=== PATIENT | male | born 1975 | race African-American/Black ===

== ENCOUNTER → 2018-05-22 | Outpatient (CLI) | payer BC ==
[2018-05-22 09:20] LABS: Basophils # (auto) 0 uL; Basophils % (auto) 0.7 % (0.0-2.0); Eosinophils # (auto) 0.1 uL; Eosinophils % (auto) 1.8 % (0.0-7.0); Hematocrit 46.8 % (41.0-53.0); Hemoglobin 15.6 g/dL (13.5-17.5); Lymphocytes # (auto) 1.9 uL; Lymphocytes % (auto) 32.4 % (10.0-50.0); Mean Corpuscular Hemoglobin 29.1 pg (28.0-32.0); Mean Corpuscular Hgb Conc. 33.4 g/dL (32.0-36.0); Mean Corpuscular Volume 87.1 fL (80.0-100.0); Monocytes # (auto) 0.4 uL; Neutrophils # (auto) 3.6 uL; Neutrophils % (auto) 59.1 % (37.0-80.0); Platelet Count (auto) 266 10^3/uL (140-450); Red Blood Cells 5.37 10^6/uL (4.5-5.90); Red Cell Distribution Width 13.4 % (11.8-14.3)
[2018-05-22 09:22] LABS: Urine Bacteria NONE SEEN /hpf (None Seen); Urine Blood Negative /uL (Negative); Urine Specific Gravity 1.021 (1.001-1.035); Urine WBC 3 /hpf (0 - 3)
[2018-05-22 09:55] LABS: Albumin 3.7 g/dL (3.4-5.0); BUN/Creatinine Ratio 13.8; Bilirubin, Total 0.6 mg/dL (0.2-1.0); Calcium 8.8 mg/dL (8.5-10.1); Potassium 4.2 mmol/L (3.5-5.1); Total Protein 7.4 g/dL (6.4-8.2)
[2018-05-22 09:57] LABS: Free T4 (Free Thyroxine) 0.84 ng/dL (0.89-1.76); Prostate Specific Antigen 0.33 ng/mL (0.0-4.0)
== END | disposition home or self-care (01) ==
LOC: LAB 08:44
PROVIDERS: ATTEND Internal Medicine
DX: E55.9 Vitamin D deficiency, unspecified (principal); R39.15 Urgency of urination; M54.9 Dorsalgia, unspecified
CPT/HCPCS: 36415; 80053; 80061; 81001; 82306; 83036; 84153; 84439; 84443; 85025; 85652; 86812

== ENCOUNTER → 2019-06-11 | Outpatient (CLI) | payer BC ==
[2019-06-11 09:42] LABS: Basophils # (auto) 0.1 uL; Basophils % (auto) 0.8 % (0.0-2.0); Eosinophils # (auto) 0.2 uL; Eosinophils % (auto) 2.7 % (0.0-7.0); Hematocrit 49.6 % (41.0-53.0); Hemoglobin 16.4 g/dL (13.5-17.5); Lymphocytes # (auto) 2.2 uL; Lymphocytes % (auto) 30.8 % (10.0-50.0); Mean Corpuscular Hemoglobin 28.9 pg (28.0-32.0); Mean Corpuscular Volume 87.6 fL (80.0-100.0); Monocytes # (auto) 0.5 uL; Monocytes % (auto) 6.7 % (0.0-12.0); Neutrophils # (auto) 4.2 uL; Nucleated Red Blood Cells % 0.1 %; Platelet Count (auto) 258 10^3/uL (140-450); Red Blood Cells 5.67 10^6/uL (4.5-5.90); Red Cell Distribution Width 13.8 % (11.8-14.3); White Blood Cell 7.2 10^3/uL (4.4-10.8)
[2019-06-11 10:24] LABS: Urine Bacteria NONE SEEN /hpf (None Seen); Urine Blood Negative /uL (Negative); Urine Mucus FEW (None Seen); Urine Specific Gravity 1.024 (1.001-1.035); Urine WBC 7 /hpf (0 - 3)
[2019-06-11 10:49] LABS: Potassium 3.9 mmol/L (3.5-5.1)
[2019-06-11 11:02] LABS: Albumin 3.9 g/dL (3.4-5.0); BUN/Creatinine Ratio 13.3; Calcium 9.2 mg/dL (8.5-10.1)
[2019-06-11 11:07] LABS: Bilirubin, Total 0.7 mg/dL (0.2-1.0); Total Protein 7.7 g/dL (6.4-8.2)
== END | disposition home or self-care (01) ==
LOC: LAB 08:30
PROVIDERS: ATTEND Internal Medicine
DX: Z00.00 Encounter for general adult medical examination without abnormal findings (principal); R21 Rash and other nonspecific skin eruption; E55.9 Vitamin D deficiency, unspecified; M25.50 Pain in unspecified joint
CPT/HCPCS: 36415; 80053; 80061; 81001; 82306; 84439; 84443; 85025; 85652; 86038; 86200; 86431

== ENCOUNTER → 2020-09-23 | Outpatient (CLI) | payer BC | END | disposition home or self-care (01) | LOC: LAB 13:50 | PROVIDERS: ATTEND Nurse Practitioner Family | DX: U07.1 COVID-19 (principal) ==

== ENCOUNTER → 2020-10-12 | Outpatient (CLI) | payer BC ==
[2020-10-12 12:48] LABS: Basophils # (auto) 0.1 10 ^3/uL (0-0.2); Basophils % (auto) 0.7 % (0.0-2.0); Eosinophils # (auto) 0.1 10 ^3/uL (0-0.8); Eosinophils % (auto) 1.1 % (0.0-7.0); Hematocrit 47.5 % (41.0-53.0); Hemoglobin 15.9 g/dL (13.5-17.5); Lymphocytes # (auto) 2.5 10 ^3/uL (0.4-5.4); Lymphocytes % (auto) 33.2 % (10.0-50.0); Mean Corpuscular Hemoglobin 29.1 pg (28.0-32.0); Mean Corpuscular Hgb Conc. 33.5 g/dL (32.0-36.0); Mean Corpuscular Volume 86.9 fL (80.0-100.0); Monocytes # (auto) 0.6 10 ^3/uL (0-1.3); Monocytes % (auto) 7.7 % (0.0-12.0); Neutrophils # (auto) 4.2 10 ^3/uL (1.6-8.6); Neutrophils % (auto) 57.3 % (37.0-80.0); Nucleated Red Blood Cells % 0.1 %; Platelet Count (auto) 451 10^3/uL (140-450); Red Blood Cells 5.46 10^6/uL (4.5-5.90); White Blood Cell 7.4 10^3/uL (4.4-10.8)
[2020-10-12 12:56] LABS: Albumin 3.3 g/dL (3.4-5.0); Anion Gap 4 (5-15); Blood Urea Nitrogen 16 mg/dL (7-18); Calcium 9.2 mg/dL (8.5-10.1); Carbon Dioxide 27 mmol/L (21-32); Chloride 109 mmol/L (98-107); Glucose 111 mg/dL (74-106); Potassium 4.2 mmol/L (3.5-5.1); Sodium 140 mmol/L (136-145)
[2020-10-12 13:02] LABS: Alanine Aminotransferase 45 U/L (16-61); Alkaline Phosphatase 64 U/L (45-117); Aspartate Aminotransferase 11 U/L (15-37); BUN/Creatinine Ratio 17.2; Bilirubin, Total 0.8 mg/dL (0.2-1.0); CRP High Sensitivity 0.26 mg/dL (< 0.3); GFR African American 112 mL/min; GFR Non-African American 93 mL/min; Lactate Dehydrogenase 150 U/L (87-241); Total Protein 7.4 g/dL (6.4-8.2)
== END | disposition home or self-care (01) ==
LOC: LAB 12:23
PROVIDERS: ATTEND Internal Medicine
DX: U07.1 COVID-19 (principal); J18.9 Pneumonia, unspecified organism
CPT/HCPCS: 36415; 80053; 82728; 83615; 84484; 85025; 85379; 86141

== ENCOUNTER 2021-08-01 18:28 | Emergency (ER) | payer BC ==
[~2021-08-01] VITALS: Ht 182.9 cm; Wt 102.1 kg
[2021-08-01] MEDS ORDERED: HYDROcodone-ACET 5/325MG TAB PO ONE (19:00)
[2021-08-01] MEDS ORDERED: KETOROLAC TROMETH 30 MG/ML 1ML VIAL IV ONE (21:15)
[2021-08-01 21:40] VITALS: BP 107/71
== END 2021-08-01 22:01 | disposition short-term general hospital (02) ==
LOC: EDBD 18:28 → ER 18:30
DX: S22.41XA Multiple fractures of ribs, right side, initial encounter for closed fracture (principal); W18.39XA Other fall on same level, initial encounter; Y93.89 Activity, other specified; Y92.89 Other specified places as the place of occurrence of the external cause; Y99.8 Other external cause status
CPT/HCPCS: 71045; 72131; 73130; 96374; 99285; J1885

== ENCOUNTER → 2021-11-05 | Outpatient (CLI) | payer BC ==
[2021-11-05 07:38] LABS: Basophils # (auto) 0.1 10 ^3/uL (0-0.2); Basophils % (auto) 0.9 % (0.0-2.0); Eosinophils # (auto) 0.2 10 ^3/uL (0-0.8); Eosinophils % (auto) 2.5 % (0.0-7.0); Hemoglobin 15.4 g/dL (13.5-17.5); Lymphocytes # (auto) 2.3 10 ^3/uL (0.4-5.4); Lymphocytes % (auto) 32.4 % (10.0-50.0); Mean Corpuscular Hemoglobin 28.5 pg (28.0-32.0); Mean Corpuscular Hgb Conc. 33.5 g/dL (32.0-36.0); Mean Corpuscular Volume 84.9 fL (80.0-100.0); Monocytes # (auto) 0.5 10 ^3/uL (0-1.3); Monocytes % (auto) 7.6 % (0.0-12.0); Neutrophils % (auto) 56.6 % (37.0-80.0); Nucleated Red Blood Cells % 0.3 %; Red Blood Cells 5.41 10^6/uL (4.5-5.90); Red Cell Distribution Width 13.6 % (11.8-14.3); White Blood Cell 7.1 10^3/uL (4.4-10.8)
[2021-11-05 08:27] LABS: Albumin 3.4 g/dL (3.4-5.0); Potassium 4.2 mmol/L (3.5-5.1)
[2021-11-05 08:32] LABS: BUN/Creatinine Ratio 17.8; Bilirubin, Total 0.4 mg/dL (0.2-1.0); Total Protein 6.8 g/dL (6.4-8.2)
== END | disposition home or self-care (01) ==
LOC: LAB 06:58
PROVIDERS: ATTEND Internal Medicine
DX: E78.1 Pure hyperglyceridemia (principal); E55.9 Vitamin D deficiency, unspecified; R73.01 Impaired fasting glucose
CPT/HCPCS: 36415; 80053; 80061; 82306; 83036; 84439; 84443; 85025; 85652

== ENCOUNTER → 2022-06-27 | Outpatient (CLI) | payer BC ==
[2022-06-27 08:08] LABS: Basophils # (auto) 0 10 ^3/uL (0-0.2); Basophils % (auto) 0.6 % (0.0-2.0); Eosinophils # (auto) 0.1 10 ^3/uL (0-0.8); Eosinophils % (auto) 1.8 % (0.0-7.0); Hematocrit 47.7 % (41.0-53.0); Hemoglobin 15.5 g/dL (13.5-17.5); Lymphocytes % (auto) 40.7 % (10.0-50.0); Mean Corpuscular Hemoglobin 28.3 pg (28.0-32.0); Mean Corpuscular Hgb Conc. 32.4 g/dL (32.0-36.0); Mean Corpuscular Volume 87.2 fL (80.0-100.0); Monocytes # (auto) 0.5 10 ^3/uL (0-1.3); Monocytes % (auto) 6.3 % (0.0-12.0); Neutrophils # (auto) 3.7 10 ^3/uL (1.6-8.6); Neutrophils % (auto) 50.6 % (37.0-80.0); Nucleated Red Blood Cells % 0.2 %; Red Blood Cells 5.47 10^6/uL (4.5-5.90); Red Cell Distribution Width 13.6 % (11.8-14.3); White Blood Cell 7.3 10^3/uL (4.4-10.8)
[2022-06-27 08:17] LABS: Albumin 3.7 g/dL (3.4-5.0); Calcium 8.8 mg/dL (8.5-10.1); Potassium 3.8 mmol/L (3.5-5.1)
[2022-06-27 08:20] LABS: BUN/Creatinine Ratio 13.9; Bilirubin, Total 0.6 mg/dL (0.2-1.0); Total Protein 7.2 g/dL (6.4-8.2)
== END | disposition home or self-care (01) ==
LOC: LAB 07:53
PROVIDERS: ATTEND Internal Medicine
DX: R63.5 Abnormal weight gain (principal); R68.2 Dry mouth, unspecified
CPT/HCPCS: 36415; 80053; 84439; 84443; 85025; 85652; 86235

== ENCOUNTER → 2023-07-12 | Outpatient (CLI) | payer BC ==
[2023-07-12 10:33] LABS: Basophils # (auto) 0.1 10 ^3/uL (0-0.2); Basophils % (auto) 0.8 % (0.0-2.0); Eosinophils # (auto) 0.2 10 ^3/uL (0-0.8); Eosinophils % (auto) 2.2 % (0.0-7.0); Hematocrit 45.9 % (41.0-53.0); Hemoglobin 15.1 g/dL (13.5-17.5); Lymphocytes # (auto) 2.7 10 ^3/uL (0.4-5.4); Lymphocytes % (auto) 35.8 % (10.0-50.0); Mean Corpuscular Hemoglobin 28.5 pg (28.0-32.0); Mean Corpuscular Hgb Conc. 32.9 g/dL (32.0-36.0); Mean Corpuscular Volume 86.7 fL (80.0-100.0); Monocytes # (auto) 0.5 10 ^3/uL (0-1.3); Monocytes % (auto) 7.3 % (0.0-12.0); Neutrophils # (auto) 4.1 10 ^3/uL (1.6-8.6); Neutrophils % (auto) 53.9 % (37.0-80.0); Red Cell Distribution Width 13.8 % (11.8-14.3); White Blood Cell 7.5 10^3/uL (4.4-10.8)
[2023-07-12 11:18] LABS: Alanine Aminotransferase 26 U/L (7-40); Alkaline Phosphatase 64 U/L (46-116); Anion Gap 6 (5-15); Aspartate Aminotransferase 17 U/L (13-40); BUN/Creatinine Ratio 11.8 (10.0-20.0); Blood Urea Nitrogen 11 mg/dL (9-23); Calcium 9.4 mg/dL (8.5-10.1); Carbon Dioxide 26 mmol/L (20-30); Chloride 108 mmol/L (98-107); Glucose 110 mg/dL (74-106); Potassium 4.2 mmol/L (3.5-5.1); Sodium 140 mmol/L (136-145)
[2023-07-12 11:19] LABS: Albumin 4.2 g/dL (3.2-4.8); Bilirubin, Total 0.8 mg/dL (0.2-1.0); Total Protein 6.9 g/dL (5.7-8.2)
== END | disposition home or self-care (01) ==
LOC: LAB 10:24
PROVIDERS: ATTEND Internal Medicine
DX: R53.83 Other fatigue (principal); Z86.16 Personal history of COVID-19
CPT/HCPCS: 36415; 80053; 83036; 85025; 85379

== ENCOUNTER → 2024-10-10 | Outpatient (CLI) | payer BC ==
[2024-10-10 06:43] LABS: Urine Bacteria None Seen /hpf (None Seen)
[2024-10-10 07:12] LABS: Basophils # (auto) 0 10 ^3/uL (0-0.2); Basophils % (auto) 0.6 % (0.0-2.0); Eosinophils # (auto) 0.2 10 ^3/uL (0-0.8); Eosinophils % (auto) 2.4 % (0.0-7.0); Hematocrit 48.5 % (41.0-53.0); Hemoglobin 15.8 g/dL (13.5-17.5); Lymphocytes % (auto) 37.9 % (10.0-50.0); Mean Corpuscular Hemoglobin 28.8 pg (28.0-32.0); Mean Corpuscular Hgb Conc. 32.6 g/dL (32.0-36.0); Mean Corpuscular Volume 88.5 fL (80.0-100.0); Monocytes # (auto) 0.5 10 ^3/uL (0-1.3); Monocytes % (auto) 6.9 % (0.0-12.0); Neutrophils # (auto) 4.1 10 ^3/uL (1.6-8.6); Neutrophils % (auto) 52.2 % (37.0-80.0); Nucleated Red Blood Cells % 0.1 %; Platelet Count (auto) 268 10^3/uL (140-450); Red Blood Cells 5.48 10^6/uL (4.5-5.90); Red Cell Distribution Width 13.9 % (11.8-14.3); Urine Blood Negative /uL (Negative); Urine Clarity Clear (Clear); Urine Color Yellow (Yellow); Urine Mucus FEW (None Seen); Urine Protein, UAD Negative (Negative); Urine Specific Gravity 1.024 (1.001-1.035); Urine Squamous Epithelial Cell None Seen /hpf (<5); Urine Urobilinogen Normal (Negative); Urine WBC 2 /hpf (0 - 3); White Blood Cell 7.8 10^3/uL (4.4-10.8)
[2024-10-10 07:37] LABS: Prostate Specific Antigen 0.55 ng/mL (0.0-4.0)
[2024-10-10 07:40] LABS: Alanine Aminotransferase 28 U/L (7-40); Albumin 4.2 g/dL (3.2-4.8); Alkaline Phosphatase 72 U/L (46-116); Anion Gap 9 (5-15); Aspartate Aminotransferase 16 U/L (13-40); BUN/Creatinine Ratio 11.5 (10.0-20.0); Blood Urea Nitrogen 11 mg/dL (9-23); Carbon Dioxide 26 mmol/L (20-31); Free T4 (Free Thyroxine) 0.89 ng/dL (0.89-1.76); Sodium 142 mmol/L (136-145)
[2024-10-10 07:41] LABS: Bilirubin, Total 0.7 mg/dL (0.2-1.0)
[2024-10-10 07:50] LABS: Chloride 107 mmol/L (98-107); Glucose 118 mg/dL (74-106)
[2024-10-10 08:08] LABS: Triglycerides 129 mg/dL (< 150)
[2024-10-10 08:10] LABS: Cholesterol 182 mg/dL (< 200); HDL Cholesterol 53 mg/dL (40-59)
[2024-10-10 08:14] LABS: LDL Cholesterol 133 mg/dL (< 100)
[2024-10-10 09:00] LABS: Erythrocyte Sedimentation Rate 2 mm/hr (0-20)
== END | disposition home or self-care (01) ==
LOC: LAB 06:30
PROVIDERS: ATTEND Internal Medicine
DX: R63.1 Polydipsia (principal)
CPT/HCPCS: 36415; 80053; 80061; 81001; 83036; 84153; 84439; 84443; 85025; 85652

== ENCOUNTER → 2025-01-03 | Outpatient (CLI) | payer BC ==
[2025-01-03 11:44] LABS: Basophils # (auto) 0.1 10 ^3/uL (0-0.2); Basophils % (auto) 0.9 % (0.0-2.0); Eosinophils # (auto) 0.2 10 ^3/uL (0-0.8); Eosinophils % (auto) 2.1 % (0.0-7.0); Hematocrit 45.4 % (41.0-53.0); Hemoglobin 15.5 g/dL (13.5-17.5); Lymphocytes # (auto) 2.2 10 ^3/uL (0.4-5.4); Lymphocytes % (auto) 28.1 % (10.0-50.0); Mean Corpuscular Hemoglobin 29.9 pg (28.0-32.0); Mean Corpuscular Volume 87.8 fL (80.0-100.0); Monocytes # (auto) 0.4 10 ^3/uL (0-1.3); Monocytes % (auto) 5.6 % (0.0-12.0); Neutrophils # (auto) 4.8 10 ^3/uL (1.6-8.6); Neutrophils % (auto) 63.3 % (37.0-80.0); Nucleated Red Blood Cells % 0.1 %; Platelet Count (auto) 252 10^3/uL (140-450); Red Blood Cells 5.18 10^6/uL (4.5-5.90); Red Cell Distribution Width 14.3 % (11.8-14.3); White Blood Cell 7.6 10^3/uL (4.4-10.8)
[2025-01-03 12:18] LABS: Alanine Aminotransferase 27 U/L (7-40); Albumin 4.2 g/dL (3.2-4.8); Alkaline Phosphatase 65 U/L (46-116); Anion Gap 8 (5-15); Aspartate Aminotransferase 18 U/L (13-40); BUN/Creatinine Ratio 9.5 (10.0-20.0); Bilirubin, Total 1.1 mg/dL (0.2-1.0); Blood Urea Nitrogen 9 mg/dL (9-23); Calcium 9.7 mg/dL (8.7-10.4); Carbon Dioxide 26 mmol/L (20-31); Potassium 4.4 mmol/L (3.5-5.1); Sodium 142 mmol/L (136-145); Total Protein 6.9 g/dL (5.7-8.2)
[2025-01-03 12:22] LABS: Chloride 108 mmol/L (98-107); Glucose 106 mg/dL (74-106)
== END | disposition home or self-care (01) ==
LOC: LAB 10:55
PROVIDERS: ATTEND Internal Medicine
DX: Z12.11 Encounter for screening for malignant neoplasm of colon (principal); R10.9 Unspecified abdominal pain
CPT/HCPCS: 36415; 80053; 82270; 85025

== ENCOUNTER 2025-04-18 15:22 | Inpatient (IN) | payer BC ==
[~2025-04-18] VITALS: Ht 182.9 cm; Wt 99.5 kg
--- NOTE | 2025-04-18 15:45 | ED.PDOC ---
General HPI Comments A 49 YEAR OLD MALE PRESENTS TO THE ED WITH COMPLAINT OF LEFT FLANK PAIN. PATIENT STATES HE HAS A HISTORY OF KIDNEY STONES IN THE PAST AND HAS BEEN EXPERIENCING LEFT FLANK PAIN THAT RADIATES TO THE LEFT LOWER QUADRANT OF HIS ABDOMEN THAT STARTED TODAY. PATIENT REPORTS HE HAS ALSO BEEN EXPERIENCING URINARY URGENCY, BUT NOTES ONLY A SMALL AMOUNT OF URINE COMES OUT. PATIENT DENIES DYSURIA, HEMATURIA, FEVER, CHILLS, SHORTNESS OF BREATH, CHEST PAIN, NAUSEA, VOMITING, HEADACHE, OR OTHER COMPLAINTS. NO OTHER SYMPTOMS OR MODIFYING FACTORS AT THIS TIME. PATIENT IS ALERT, ORIENTED X 4, AND HAS STEADY GAIT. Time Seen by MD: 15:24 Primary Care Provider: GURJIT Reviewed notes: Nurses Notes, Medications, Allergies Allergies: Coded Allergies: NO KNOWN ALLERGIES (Unverified , 08/28/15) Home Meds No Active Prescriptions or Reported Meds Information Source: Patient Mode of Arrival: Ambulatory Severity: Moderate Inability to void: None Timing: Days Duration: Since onset, Days Prehospital treatment: None Onset: Spontaneous Symptoms: Frequency, Urgency, Other (LEFT FLANK PAIN) History of: Kidney stone Location: None Penile discharge: None Modifying factors: None associated signs and symptoms: Flank Pain, Urgency Past Medical History PAST MEDICAL HISTORY: Kidney Stones Surgical History: Denies all surgeries Family History Family History: Reviewed,noncontributory to illness Social History Smoker: Non-Smoker Alcohol: Denies ETOH Use Drugs: Denies Drug Use Lives In: Home Constitutional: denies: chills, diaphoresis, fatigue, fever, malaise, sweats, weakness, others EENTM: denies: blurred vision, double vision, ear bleeding, ear discharge, ear drainage, ear pain, ear ringing, eye pain, eye redness, hearing loss, mouth pain, mouth swelling, nasal discharge, nose bleeding, nose congestion, nose pain, photophobia, tearing, throat pain, throat swelling, voice changes, others Respiratory: denies: cough, hemoptysis, orthopnea, SOB at rest, shortness of breath, SOB with excertion, stridor, wheezing, others Cardiovascular: denies: chest pain, dizzy spells, diaphoresis, Dyspnea on exertion, edema, irregular heart beat, left arm pain, lightheadedness, palpitations, PND, syncope, others Gastrointestinal: reports: abdominal pain (LLQ ABDOMINAL PAIN); denies: abdomen distended, blood streaked bowels, constipated, diarrhea, dysphagia, difficulty swallowing, hematemesis, melena, nausea, poor appetite, poor fluid intake, rectal bleeding, rectal pain, vomiting, others Genitourinary: reports: flank pain (LEFT FLANK PAIN), frequency, urgency; denies: burning, dysuria, hematuria, incontinence, penile discharge, penile sore, pain, testicle pain, testicle swelling, others Neurological: denies: dizziness, fainting, headache, left sided numbness, left sided weakness, numbness, paresthesia, pre-existing deficit, right sided n umbness, right sided weakness, seizure, speech problems, tingling, tremors, weakness, others Musculoskeletal: denies: back pain, gout, joint pain, joint swelling, muscle pain, muscle stiffness, neck pain, others Integumetry: denies: bruises, change in color, change in hair/nails, dryness, laceration, lesions, lumps, rash, wounds, others Allergic/Immunocompromised: denies: Difficulty Healing, Frequent Infections, Hives, Itching, others Hematologic/Lymphatic: denies: anemia, blood clots, easy bleeding, easy bruising, swollen glands, others Endocrine: denies: excessive hunger, excessive sweating, excessive thirst, excessive urination, flushing, intolerance to cold, intolerance to heat, unexplained weight gain, unexplained weight loss, others Psychiatric: denies: anxiety, bipolar disorder, depression, hopeless, panic disorder, schizophrenia, sleepless, suicidal, others All Other Systems: Reviewed and Negative Physical Exam General Appearance: No Apparent Distress, Normal HEENT: Normal ENT Inspection, PERRL/EOMI, Pharynx Normal, TMs Normal Neck: Full Range of Motion, Non-Tender, Normal, Normal Inspection Respiratory: Chest Non-Tender, Lungs Clear, No Accessory Muscle Use, No Respiratory Distress, Normal Breath Sounds Cardiovascular: No Edema, No JVD, No Murmur, No Gallop, Normal Peripheral Pulses, Regular Rate/Rhythm Breast Exam: Deferred Gastrointestinal: LLQ, No Organomegaly, No Pulsatile Mass, Normal Bowel Sounds, Soft, Tenderness (TENDERNESS WITH GUARDING ON LEFT LOWER ABD AND FLANK, NO REBOUND TENDERNESS, +CVA TENDERNESS. ) Genitalia: Deferred Pelvic: Normal External Exam Rectal: Deferred Extremities: No calf tenderness, Normal capillary refill, Normal inspection, Normal range of motion, Non-tender, No pedal edema Musculoskeletal : Apperance: Normal Neurologic: Alert, care transition coordinator II-XII nml as Tested, No Motor Deficits, Normal Affect, Normal Mood, No Sensory Deficits Cerebellar Function: Normal Reflexes: Normal Skin: Dry, Normal Color, Warm Peripheral Pulses: 2+ carotid (R), 2+ carotid (L) Lymphatic: No Adenopathy Was a procedure done? Was a procedure done?: No Differential Diagnosis Kidney stone (Female): N/A Kidney stone (Male): DJD, Pyelonephritis, Renal failure, Strain, Urolithiasis, Urinary tract infection Penile/Scrotal: N/A Urinary Problem (Male): Renal Failure, Urolithiasis, UTI Urinary Problem (Female): N/A X-Ray, Labs, Meds, VS Vital Signs Date Time Temp Pulse Resp B/P (MAP) Pulse Ox O2 Delivery O2 Flow Rate FiO2 04/18/25 17:49 97.6 63 18 123/76 (92) 97 97.6 04/18/25 16:19 84 19 96 Room Air* 0 21 04/18/25 15:50 97.6 53 16 146/84 (104) 97 97.6 Lab Test 04/18/25 15:41 04/18/25 15:40 Range/Units White Blood Count 10.2 4.4-10.8 10^3/uL Red Blood Count 5.35 4.5-5.90 10^6/uL Hemoglobin 15.4 13.5-17.5 g/dL Hematocrit 46.5 41.0-53.0 % Mean Corpuscular Volume 87.1 80.0-100.0 fL Mean Corpuscular Hemoglobin 28.8 28.0-32.0 pg Mean Corpuscular Hemoglobin Concent 33.1 32.0-36.0 g/dL Red Cell Distribution Width 13.5 11.8-14.3 % Platelet Count 243 140-450 10^3/uL Mean Platelet Volume 8.9 6.9-10.8 fL Neutrophils (%) (Auto) 71.3 37.0-80.0 % Lymphocytes (%) (Auto) 21.9 10.0-50.0 % Monocytes (%) (Auto) 5.0 0.0-12.0 % Eosinophils (%) (Auto) 1.1 0.0-7.0 % Basophils (%) (Auto) 0.7 0.0-2.0 % Neutrophils # (Auto) 7.3 1.6-8.6 10 ^3/uL Lymphocytes # (Auto) 2.2 0.4-5.4 10 ^3/uL Monocytes # (Auto) 0.5 0-1.3 10 ^3/uL Eosinophils # (Auto) 0.1 0-0.8 10 ^3/uL Basophils # (Auto) 0.1 0-0.2 10 ^3/uL Nucleated Red Blood Cells 0.0 % Sodium Level 142 136-145 mmol/L Potassium Level 4.4 3.5-5.1 mmol/L Chloride Level 108 H 98-107 mmol/L Carbon Dioxide Level 29 20-31 mmol/L Anion Gap 5 5-15 Blood Urea Nitrogen 13 9-23 mg/dL Creatinine 1.03 0.700-1.30 mg/dL Glomerular Filtration Rate Calc 88 >90 mL/min BUN/Creatinine Ratio 12.6 10.0-20.0 Serum Glucose 116 H 74-106 mg/dL Calcium Level 10.0 8.7-10.4 mg/dL Total Bilirubin 0.8 0.2-1.0 mg/dL Aspartate Amino Transferase (AST) 14 13-40 U/L Alanine Aminotransferase (ALT) 15 7-40 U/L Alkaline Phosphatase 72 46-116 U/L Total Protein 6.8 5.7-8.2 g/dL Albumin 4.3 3.2-4.8 g/dL Urine Color Yellow Yellow Urine Clarity Clear Clear Urine pH 6.5 5.0-9.0 Urine Specific [place] 1.021 1.001-1.035 Urine Protein Trace H Negative Urine Ketones Negative Negative Urine Blood 3+ H Negative /uL Urine Nitrite Negative Negative Urine Bilirubin Negative Negative Urine Urobilinogen Normal Negative mg/dL Urine Leukocyte Esterase Trace Negative /uL Urine RBC 329 0 - 3 /hpf Urine Microscopic WBC 2 0-3 /HPF Urine Squamous Epithelial Cells Few <5 /hpf Urine Bacteria None seen None Seen /hpf Urine Mucus Few None Seen Urine Glucose Normal Normal mg/dL Current Medications Medications (Trade) Dose Ordered Sig/Refugio Route Start Time Stop Time Status Last Admin Sodium Chloride 1,000 ml @ 1,000 mls/hr Q1H ONCE IV 04/18/25 15:45 04/18/25 16:44 DC 04/18/25 16:11 Ketorolac Tromethamine (Toradol Injection) 30 mg ONCE ONCE IV 04/18/25 15:45 04/18/25 15:46 DC 04/18/25 16:18 Ondansetron HCl (Zofran) 4 mg ONCE ONCE IV 04/18/25 15:45 04/18/25 15:46 DC 04/18/25 16:18 Sodium Chloride 1,000 ml @ 1,000 mls/hr Q1H ONCE IV 04/18/25 17:15 04/18/25 18:14 04/18/25 17:17 PATIENT: JUNITO TONYT: [id number]: [id number] : 1975 LOC: ER ROOM / BED: / AGE / SEX: 49 / M ADM STATUS: REG ER SERVICE 1538 ORDERING PHYSICIAN: AILYN CONLEY PROCEDURE(s): ABPL - CT AB PEL WO CON-NO ORAL OR IV REASON: LEFT FLANK PAIN, HX OF KIDNEY STONES ORDER NUMBER(s): [id number], ACCESSION NUMBER(s): [id number] Exam: CT CT AB PEL WO CON-NO ORAL OR IV History: LEFT FLANK PAIN, HX OF KIDNEY STONES Comparison Study: CT ABD PELVIS WO CONTRAST on DOS: 03/14/13 Technique: Multidetector spiral CT of the abdomen and pelvis was performed from lung bases to pubic symphysis. Imaging was performed without IV contrast. Axial, coronal and sagittal multiplanar reformats were obtained from the axial data set by the technologist. Radiation dose : Abdomen/Pelvis: CTDIvol 10 mGy, DLP 627 mGy*cm. Findings: Evaluation of solid organs is limited due to lack of intravenous contrast use. Lung Bases: No acute or significant lung base finding. Normal heart size. No pleural or pericardial effusion. Liver: The liver is normal in size. No focal lesions. Gallbladder and biliary Tree: Unremarkable Spleen: Few subcentimeter hypodensities in the spleen. Pancreas: The pancreas is grossly normal in appearance. Adrenal Glands: Unremarkable Kidneys: Iuxk-qc-gmzllnro left hydronephrosis and hydroureter with an obstructing calculus in the distal left ureter measuring up to 2 mm. No right hydronephrosis. Bladder: Grossly unremarkable for degree of distention. Bowel: The stomach is grossly normal in appearance. Small bowel and colon are normal in caliber and distribution. Normal appendix is visualized in the right lower quadrant without findings of appendicitis. Sigmoid diverticulosis. Ascites: Absent Lymphadenopathy: No mesenteric, retroperitoneal or periportal lymphadenopathy. Abdominal wall and Mesentery: Unremarkable. Vasculature: The visualized abdominal aorta is normal in size and caliber. Evaluation of abdominal and pelvic vessels is limited due to lack of intravenous contrast. Pelvic Organs: Unremarkable Musculoskeletal: No aggressive focal bony lesions, acute fractures or dislocation. IMPRESSION: 1. Ubtw-pr-cfohqets left hydronephrosis and hydroureter with an obstructing calculus in the distal left ureter measuring up to 2 mm. Urology evaluation is recommended. 2. Few subcentimeter hypodensities in the spleen similar to prior are nonspecific. This can be further evaluated with MRI of the abdomen with co ntrast. Sigmoid diverticulosis. Radiation optimization: All CT scans at this facility use at least one of these dose optimization techniques: Automated exposure control mA and/or kV adjustment per patient size (includes targeted exams where dose is matched to clinical indication) or iterative reconstruction. HS:Y ATED BY: ALVERTO PIRES MD DICTATED DATE/TIME: 04/18/251639 SIGNED BY: ALVERTO PIRES MD SIGNED DATE/TIME: 04/18/251639 CC: X-Ray, Labs, Meds, VS Comment EXTERNAL MEDICAL RECORDS REVIEWED: [NONE] INDEPENDENT HISTORIANS: [NONE] SOCIAL DETERMINANTS OF HEALTH: [NONE] LABS ORDERED: CBC, CMP, UA REVIEWED AND INTERPRETED RESULTS: BLOOD 3+ IMAGING ORDERED: CT ABD/PEL TREATMENTS ORDERED: NS 2L IV, TORADOL 30MG IV, ZOFRAN 4MG IV, MORHPINE 4MG IV, FLOMAX 0.8MG PO PROCEDURES PERFORMED: NONE CRITICAL CARE TIME: NONE I HAVE DISCUSSED THE PATIENT WITH THE ATTENDING PHYSICIAN DR. CRUZ AND HE AGREES WITH THE PATIENT'S PLAN OF CARE. UPON PHYSICAL EXAMINATION, THE PATIENT HAD LEFT CVA TENDERNESS NOTED UPON PALPATION, BUT NO ABDOMINAL GUARDING OR REBOUND TENDERNESS NOTED UPON PALPATION. DUE TO THE PATIENT'S CT SCAN REVEALING MODERATE HYDRONEPHROSIS, AN OBSTRUCTING 2MM LEFT RENAL STONE, AND PERSISTENT PAIN, I HAVE DETERMINED THE PATIENT NEEDS TO BE ADMITTED FOR FURTHER TREATMENT AND EVALUATION. THE ON-CALL HOSPITALIST WILL BE CONTACTED FOR ADMISSION OF THIS PATIENT AND UROLOGY CONSULT. Images Reviewed?: Images reviewed and evaluated by me Time of 1ST Reevaluation: 17:37 Reevaluation 1ST: Unchanged Patient Education/Counseling: Diagnosis, Treatment Family Education/Counseling: Diagnosis, Treatment SEPSIS Sepsis Screen Physician Orders Heplock Iv (04/18/25 ) Ct Ab Pel Wo Con-No Oral Or Iv (04/18/25 15:38) Sodium Chloride 0.9% (04/18/25 17:15) Morphine Sulfate Injection (04/18/25 18:00) Tamsulosin Hydrochloride (Flomax) (04/18/25 18:00) Vital Signs Date Time Temp Pulse Resp B/P (MAP) Pulse Ox O2 Delivery O2 Flow Rate FiO2 04/18/25 17:49 97.6 63 18 123/76 (92) 97 97.6 04/18/25 16:19 84 19 96 Room Air* 0 21 04/18/25 15:50 97.6 53 16 146/84 (104) 97 97.6 Laboratory Tests Test 04/18/25 15:41 White Blood Count 10.2 10^3/uL (4.4-10.8) Medications Medications Dose Ordered Sig/Refugio Route Start Time Stop Time Status Last Admin Dose Admin Ketorolac Tromethamine 30 mg ONCE ONCE IV 04/18/25 15:45 04/18/25 15:46 DC 04/18/25 16:18 Ondansetron HCl 4 mg ONCE ONCE IV 04/18/25 15:45 04/18/25 15:46 DC 04/18/25 16:18 Sodium Chloride 1,000 ml @ 1,000 mls/hr Q1H ONCE IV 04/18/25 15:45 04/18/25 16:44 DC 04/18/25 16:11 Sodium Chloride 1,000 ml @ 1,000 mls/hr Q1H ONCE IV 04/18/25 17:15 04/18/25 18:14 04/18/25 17:17 Departure 1 Departure Time of Disposition: 17:37 Impression: Primary Impression: Left renal stone Additional Impressions: Hydronephrosis with obstructing calculus Intractable pain Disposition: 09 ADMITTED INPATIENT Admit to: Med Surg Condition: Serious e-Prescriptions No Active Prescriptions or Reported Meds Critical Care Note Critical Care Time?: No Stability Stability form required: Yes Unstable for transfer: Requires medication, ED Physician Assesment, Possible rapid decline I personally scribed for AILYN CONLEY ([email or web address]) on 04/18/25 at 15:45. Electronically submitted by Manfred Acevedo ([email or web address]). I personally scribed for AILYN CONLEY ([email or web address]) on 04/18/25 at 17:07. Electronically submitted by Manfred Acevedo ([email or web address]). I personally scribed for AILYN CONLEY ([email or web address]) on 04/18/25 at 17:14. Electronically submitted by Manfred Acevedo ([email or web address]). I personally scribed for AILYN CONLEY ([email or web address]) on 04/18/25 at 17:22. Electronically submitted by Manfred Acevedo ([email or web address]). I personally scribed for SUHAS CRUZ MD ([email or web address]) on 04/18/25 at 17:54. Electronically submitted by Manfred Acevedo ([email or web address]). AILYN CONLEY Apr 18, 2025 15:45 SUHAS CRUZ MD Apr 18, 2025 17:54
[2025-04-18 16:07] LABS: Hematocrit 46.5 % (41.0-53.0); Hemoglobin 15.4 g/dL (13.5-17.5); Mean Corpuscular Hemoglobin 28.8 pg (28.0-32.0); Mean Corpuscular Volume 87.1 fL (80.0-100.0); Nucleated Red Blood Cells % 0.0 %
[2025-04-18 16:10] LABS: Urine Protein, UAD TRACE (Negative)
[2025-04-18] MEDS: SODIUM CHLORIDE 0.9% 1,000 ML IV ONE ×2 (16:11→17:17)
[2025-04-18] MEDS: ONDANSETRON HCL 4 MG/2 ML VIAL IV ONE (16:18)
[2025-04-18] MEDS: KETOROLAC TROMETH 30 MG/ML 1ML VIAL IV ONE (16:18)
[2025-04-18 16:19] VITALS: PULSE 84; RESP 19; O2SAT 96
[2025-04-18 16:21] LABS: Alanine Aminotransferase 15 U/L (7-40); Albumin 4.3 g/dL (3.2-4.8); Alkaline Phosphatase 72 U/L (46-116); Anion Gap 5 (5-15); BUN/Creatinine Ratio 12.6 (10.0-20.0); Bilirubin, Total 0.8 mg/dL (0.2-1.0); Blood Urea Nitrogen 13 mg/dL (9-23); Calcium 10.0 mg/dL (8.7-10.4); Carbon Dioxide 29 mmol/L (20-31); Chloride 108 mmol/L (98-107); Glucose 116 mg/dL (74-106); Potassium 4.4 mmol/L (3.5-5.1); Sodium 142 mmol/L (136-145); Total Protein 6.8 g/dL (5.7-8.2)
--- NOTE | 2025-04-18 16:42 | DVH ---
Exam: CT CT AB PEL WO CON-NO ORAL OR IV History: LEFT FLANK PAIN, HX OF KIDNEY STONES Comparison Study: CT ABD PELVIS WO CONTRAST on DOS: 03/14/13 Technique: Multidetector spiral CT of the abdomen and pelvis was performed from lung bases to pubic symphysis. Imaging was performed without IV contrast. Axial, coronal and sagittal multiplanar reform ats were obtained from the axial data set by the technologist. Radiation dose : Abdomen/Pelvis: CTDIvol 10 mGy, DLP 627 mGy*cm. Findings: Evaluation of solid organs is limited due to lack of intravenous contrast use. Lung Bases: No acute or significant lung base finding. Normal heart size. No pleural or pericardial effusion. Liver: The liver is normal in size. No focal lesions. Gallbladder and biliary Tree: Unremarkable Spleen: Few subcentimeter hypodensities in the spleen. Pancreas: The pancreas is grossly normal in appearance. Adrenal Glands: Unremarkable Kidneys: Mazr-vd-kfgtqykf left hydronephrosis and hydroureter with an obstructing calculus in the dis wilmar left ureter measuring up to 2 mm. No right hydronephrosis. Bladder: Grossly unremarkable for degree of distention. Bowel: The stomach is grossly normal in appearance. Small bowel and colon are normal in caliber and d istribution. Normal appendix is visualized in the right lower quadrant without findings of appendicit is. Sigmoid diverticulosis. Ascites: Absent Lymphadenopathy: No mesenteric, retroperitoneal or periportal lymphadenopathy. Abdominal wall and Mesentery: Unremarkable. Vasculature: The visualized abdominal aorta is normal in size and caliber. Evaluation of abdominal a nd pelvic vessels is limited due to lack of intravenous contrast. Pelvic Organs: Unremarkable Musculoskeletal: No aggressive focal bony lesions, acute fractures or dislocation. IMPRESSION: 1. Jnub-kq-rqfgtlwk left hydronephrosis and hydroureter with an obstructing calculus in the distal le ft ureter measuring up to 2 mm. Urology evaluation is recommended. 2. Few subcentimeter hypodensities in the spleen similar to prior are nonspecific. This can be furthe r evaluated with MRI of the abdomen with contrast. Sigmoid diverticulosis. Radiation optimization: All CT scans at this facility use at least one of these dose optimization keke hniques: Automated exposure control mA and/or kV adjustment per patient size (includes targeted exams where dose is matched to clinical indication) or iterative reconstruction. HS:Y
[2025-04-18] MEDS: TAMSULOSIN HYDROCHLORIDE 0.4 MG CAP PO ONE (18:14)
[2025-04-18] MEDS: MORPHINE SULFATE 4 MG/ML SYR/VIAL IV ONE (18:16)
[2025-04-18] MEDS ORDERED: NITROGLYCERIN 0.4 MG SL TAB SL PRN (22:30)
[2025-04-18] MEDS: MORPHINE SULFATE INJ 2 MG/ml SYRG IV PRN (23:01)
--- NOTE | 2025-04-18 23:23 | DVHHP2 ---
History of Present Illness History of Present Illness This is a 49-year-old male with past medical history of Renal calculus came to ED with the complaint of left flank pain which started since afternoon and getting worse which is dull in nature, localized, 7-9/10 intensity, no aggravating or relieving factors. Patient history of renal stone13 years ago and passes spontaneously after taking medication. He passes small amount of urine today even though his drinking water as usual. Patient currently denies any fever, dysuria, hematuria, nausea, vomiting, constipation, diarrhea, chest pain, headache. PAST MEDICAL HISTORY: Kidney Stones Surgical History: Bilateral knee surgery 1997 and 2000 Family History: Nothing contributory Social History Smoker: Non-Smoker Alcohol: Denies ETOH Use Drugs: Denies Drug Use Lives In: Home Allergy: No known allergy PCP: DR. Gold Review of Systems Constitutional: No: Fever, Chills, Sweats, Weakness, Malaise, Other Eyes: No: Pain, Vision change, Conjunctivae inflammation, Eyelid inflammation, Other, Redness ENT: No: Ear pain, Ear discharge, Nose pain, Nose discharge, Nose congestion, Mouth pain, Mouth swelling, Throat pain, Throat swelling, Other Respiratory: No: Cough, Dry, Shortness of breath, SOB with excertion, Wheezing, Hemoptysis, Pleuritic Pain, Sputum, Wheezing, Other Cardiovascular: No: Chest Pain, Palpitations, Orthopnea, Paroxysmal Noc. Dyspnea, Edema, Lt Headedness, Other Gastrointestinal: Other (Left flank pain); No: Nausea, Vomiting, Abdominal Pain, Diarrhea, Constipation, Melena, Hematochezia Genitourinary: Frequency Musculoskeletal: No: other, neck pain, shoulder pain, arm pain, back pain, hand pain, leg pain, foot pain Skin: No: Rash, Lesions, Jaundice, Bruising, Other Neurological: No: Weakness, Numbness, Incoordination, Change in speech, Confusion, Seizures, Other Allergies: Coded Allergies: NO KNOWN ALLERGIES (Unverified , 08/28/15) Medications Current Medications Medications Dose Ordered Sig/Refugio Route Start Time Stop Time Status Last Admin Dose Admin Sodium Chloride 1,000 ml @ 125 mls/hr Q8H IV 04/18/25 22:00 Ceftriaxone Sodium 50 ml @ 100 mls/hr DAILY@09 IV 04/19/25 09:00 Nitroglycerin 0.4 mg Q5MINP PRN SL 04/18/25 22:30 Morphine Sulfate 2 mg Q6HPRN PRN IV 04/18/25 22:30 04/18/25 23:01 2 MG Exam Vital Signs Vital Signs Date Time Temp Pulse Resp B/P (MAP) Pulse Ox O2 Delivery O2 Flow Rate FiO2 04/18/25 23:01 62 18 118/74 04/18/25 23:00 Room Air* 0 21 04/18/25 22:50 97.8 97 97.8 General Appearance: Alert, Cooperative, Other (Surgical scar keira bilateral knee) HEENT: Atraumatic, PERRLA, EOMI Respiratory: Clear to auscultation, Normal air movement Cardiovascular: Regular rate, Normal S1, Normal S2 Abdominal: Normal bowel sounds, Soft, No tenderness, No hepatospenomegaly, Other (Left costovertebral angle tender on deep palpation) Extremities: No clubbing, No cyanosis Skin: No rashes, No breakdown Neuro: Normal gait, Normal speech Labs/Xrays Labs Test 04/18/25 15:41 04/18/25 15:40 Range/Units White Blood Count 10.2 4.4-10.8 10^3/uL Red Blood Count 5.35 4.5-5.90 10^6/uL Hemoglobin 15.4 13.5-17.5 g/dL Hematocrit 46.5 41.0-53.0 % Mean Corpuscular Volume 87.1 80.0-100.0 fL Mean Corpuscular Hemoglobin 28.8 28.0-32.0 pg Mean Corpuscular Hemoglobin Concent 33.1 32.0-36.0 g/dL Red Cell Distribution Width 13.5 11.8-14.3 % Platelet Count 243 140-450 10^3/uL Mean Platelet Volume 8.9 6.9-10.8 fL Neutrophils (%) (Auto) 71.3 37.0-80.0 % Lymphocytes (%) (Auto) 21.9 10.0-50.0 % Monocytes (%) (Auto) 5.0 0.0-12.0 % Eosinophils (%) (Auto) 1.1 0.0-7.0 % Basophils (%) (Auto) 0.7 0.0-2.0 % Neutrophils # (Auto) 7.3 1.6-8.6 10 ^3/uL Lymphocytes # (Auto) 2.2 0.4-5.4 10 ^3/uL Monocytes # (Auto) 0.5 0-1.3 10 ^3/uL Eosinophils # (Auto) 0.1 0-0.8 10 ^3/uL Basophils # (Auto) 0.1 0-0.2 10 ^3/uL Nucleated Red Blood Cells 0.0 % Sodium Level 142 136-145 mmol/L Potassium Level 4.4 3.5-5.1 mmol/L Chloride Level 108 H 98-107 mmol/L Carbon Dioxide Level 29 20-31 mmol/L Anion Gap 5 5-15 Blood Urea Nitrogen 13 9-23 mg/dL Creatinine 1.03 0.700-1.30 mg/dL Glomerular Filtration Rate Calc 88 >90 mL/min BUN/Creatinine Ratio 12.6 10.0-20.0 Serum Glucose 116 H 74-106 mg/dL Calcium Level 10.0 8.7-10.4 mg/dL Total Bilirubin 0.8 0.2-1.0 mg/dL Aspartate Amino Transferase (AST) 14 13-40 U/L Alanine Aminotransferase (ALT) 15 7-40 U/L Alkaline Phosphatase 72 46-116 U/L Total Protein 6.8 5.7-8.2 g/dL Albumin 4.3 3.2-4.8 g/dL Urine Color Yellow Yellow Urine Clarity Clear Clear Urine pH 6.5 5.0-9.0 Urine Specific [place] 1.021 1.001-1.035 Urine Protein Trace H Negative Urine Ketones Negative Negative Urine Blood 3+ H Negative /uL Urine Nitrite Negative Negative Urine Bilirubin Negative Negative Urine Urobilinogen Normal Negative mg/dL Urine Leukocyte Esterase Trace Negative /uL Urine RBC 329 0 - 3 /hpf Urine Microscopic WBC 2 0-3 /HPF Urine Squamous Epithelial Cells Few <5 /hpf Urine Bacteria None seen None Seen /hpf Urine Mucus Few None Seen Urine Glucose Normal Normal mg/dL SEPSIS Sepsis Screen Date sepsis recognized/suspect: Apr 18, 2025 Time Sepsis recognized/suspect: 1536 Recent Procedure: No On Antibiotic Therapy: No Respiratory Rate >20: No Heart Rate >90: No Temp<36 C (96.8 F) or >38.3 C: No SBP <90 or MAP <65 mmHG: No New Acute Mental Status Change: No Is the patient on CPAP, BIPAP,: No Physician Orders Heplock Iv (04/18/25 ) Ct Ab Pel Wo Con-No Oral Or Iv (04/18/25 15:38) Sodium Chloride 0.9% (04/18/25 22:00) Ceftriaxone 1gm/50ml D5w (Rocephin) (04/19/25 09:00) * Urology Consult (04/18/25 21:55) Tamsulosin Hydrochloride (Flomax) (04/19/25 22:00) Admit (04/18/25 22:16) Nitroglycerin Sublingual (Ntrostat Subli (04/18/25 22:30) Morphine Sulfate Injection (04/18/25 22:30) Vital Signs Date Time Temp Pulse Resp B/P (MAP) Pulse Ox O2 Delivery O2 Flow Rate FiO2 04/18/25 23:01 62 18 118/74 04/18/25 23:00 Room Air* 0 21 04/18/25 22:50 97.8 62 18 118/74 (89) 97 97.8 04/18/25 20:06 97.9 65 18 114/72 (86) 98 97.9 04/18/25 18:16 64 18 134/84 04/18/25 17:49 97.6 63 18 123/76 (92) 97 97.6 04/18/25 17:49 63 17 97 Room Air 04/18/25 16:19 84 19 96 Room Air* 0 21 04/18/25 15:50 97.6 53 16 146/84 (104) 97 97.6 Laboratory Tests Test 04/18/25 15:41 White Blood Count 10.2 10^3/uL (4.4-10.8) Medications Medications Dose Ordered Sig/Refugio Route Start Time Stop Time Status Last Admin Dose Admin Ketorolac Tromethamine 30 mg ONCE ONCE IV 04/18/25 15:45 04/18/25 15:46 DC 04/18/25 16:18 30 MG Morphine Sulfate 2 mg Q6HPRN PRN IV 04/18/25 22:30 04/18/25 23:01 2 MG Morphine Sulfate 4 mg ONCE ONCE IV 04/18/25 18:00 04/18/25 18:01 DC 04/18/25 18:16 4 MG Ondansetron HCl 4 mg ONCE ONCE IV 04/18/25 15:45 04/18/25 15:46 DC 04/18/25 16:18 4 MG Sodium Chloride 1,000 ml @ 1,000 mls/hr Q1H ONCE IV 04/18/25 15:45 04/18/25 16:44 DC 04/18/25 16:11 1,000 MLS/HR Sodium Chloride 1,000 ml @ 1,000 mls/hr Q1H ONCE IV 04/18/25 17:15 04/18/25 18:14 DC 04/18/25 17:17 1,000 MLS/HR Tamsulosin HCl 0.8 mg ONCE ONCE PO 04/18/25 18:00 04/18/25 18:01 DC 04/18/25 18:14 0.8 MG Assessment/Plan Assessment/Plan # INTRACTABLE ABDOMINAL PAIN DUE TO LEFT URETERIC CALCULI -patient came with left flank pain -denies any recent history of fall, trauma, injury -CT abd w/o contrast - Mmtr-rm-iaovrcvr left hydronephrosis and hydroureter with an obstructing calculus in the distal left ureter measuring up to 2 mm. Urology evaluation is recommended. Few subcentimeter hypodensity in the spleen similar to prior are nonspecific. This can be further evaluated with MRI of the abdomen with contrast. Sigmoid diverticulosis. -in ER patient received tamsulosin 0.8 mg, morphine, NSS bolus, ondansetron, ketorolac -UA-blood 3+, RBC 3-9, WBC 2, bacteria none -tamsulosin 0.4 mg p.o. daily -Mannitol IV flush -ceftriaxone1 g IV daily for prophylactic -morphine2 mg IV q.6 p.r.n. for pain -NSS 125 cc/hours # LEFT SIDED HYDRONEPHROSIS DUE TO OBSTRUCTION WITH STONE --CT abd w/o contrast - Wrzc-ib-vgcgkymc left hydronephrosis and hydroureter with an obstructing calculus in the distal left ureter -UROLOGY CONSULT # OBESITY, BMI 28.4 -lifestyle modification DIET: REGULAR GI prophylaxis: Pantoprazole 40 mg p.o. daily DVT prophylaxis: Patient ambulating Goals of care discussions,27 minutes spent. Full code status. Case discussed with Dr. Story Plan discussed with: Patient, Spouse, Other (Nurse) My Orders Orders - ANGI ALVA RESIDENT Procedure Category Date Status Time Admit ADMIT 04/18/25 Transmitted 22:16 Nitroglycerin PHA 04/18/25 In Process Sublingual (Ntrostat 22:30 Morphine Sulfate PHA 04/18/25 In Process Injection 22:30 Date of Service: Apr 18, 2025 Billing Provider: CASPER STORY MD Common Visit Codes: [id number] INP/OBS CARE (HIGH) Secondary Visit Codes: [id number] CARE PLAN 30 MINUTES ANGI ALVA RESIDENT Apr 18, 2025 23:23
[2025-04-18 23:45] VITALS: BP 132/79; PULSE 63; RESP 18; TEMP 98; O2SAT 96
[2025-04-19] VITALS (7 sets, daily range): BP systolic 87–139; BP diastolic 53–93; PULSE 56–78; RESP 16–18; TEMP 98.2–99.2; O2SAT 95–99
[2025-04-19] MEDS: SODIUM CHLORIDE 0.9% 1,000 ML IV SCH (00:09)
[2025-04-19] MEDS: cefTRIAXone 1GM/50ML D5W 50 ML IV ONE (00:09)
[2025-04-19] MEDS: MANNITOL FTV 25% 12.5 GM/50 ML 50 ML IV ONE ×2 (00:10→10:44)
[2025-04-19] MEDS: PANTOPRAZOLE 40 MG TAB PO SCH (05:27)
--- NOTE | 2025-04-19 06:55 | DVHPNRES ---
Progress Note Date Seen: Apr 19, 2025 Resident Creating Document: MARIANNE TOBIN RESIDENT Medical Necessity Reason Pt with a Central, PICC or Fol: No Subjective Review of Systems This is a 49-year-old male with PMHx nephrolithiasis few years back, who presented to the ER with a chief complaint of left flank pain for a day. Patient reports sudden onset, left flank pain, nonradiating, localized, severe in intensity starting yesterday in afternoon. Denies any dysuria or hematuria. Denies fever/chills/nausea/vomiting. Patient does not know the details of the kidney stone few years back. Past medical history: Nephrolithiasis Social history: Denies smoking, drug use, drinks alcohol socially Patient seen and examined at the bedside. Has left-sided costovertebral angle tenderness, reports 8/10 pain, IV morphine ordered. Urology consulted. Objective vital signs Vital Sign Date Time Temp Pulse Resp B/P (MAP) Pulse Ox O2 Delivery O2 Flow Rate FiO2 04/19/25 05:00 98.2 78 18 126/64 (84) 95 98.2 04/18/25 23:54 Room Air* 0 21 Total Intake and Output 04/18/25 04/18/25 04/19/25 15:00 23:00 07:00 Intake Total 2000 ml 0 ml Balance 2000 ml 0 ml medications Current Medications Medications Dose Ordered Sig/Refugio Route Start Time Stop Time Status Last Admin Dose Admin Sodium Chloride 1,000 ml @ 125 mls/hr Q8H IV 04/18/25 22:00 04/19/25 00:09 125 MLS/HR Ceftriaxone Sodium 50 ml @ 100 mls/hr DAILY@09 IV 04/19/25 09:00 Nitroglycerin 0.4 mg Q5MINP PRN SL 04/18/25 22:30 Morphine Sulfate 2 mg Q6HPRN PRN IV 04/18/25 22:30 04/18/25 23:01 2 MG Pantoprazole Sodium 40 mg DAILY@0600 PO 04/19/25 06:00 04/19/25 05:27 40 MG Examination Patient lying in bed, in mild distress General: Overweight, afebrile, palor, mucosae are moist Cardiovascular: Regular S1 and S2. No murmurs, gallops or rubs. No JVD elevation. No pedal edema Respiratory: Normal B/L air entry on room air. Clear lung sounds on auscultation Abdomen: Soft, nontender, nondistended, normoactive bowel sounds, no rebound tenderness, no organomegaly, no masses. Left costovertebral angle tenderness, Genitourinary: Deferred MSK/skin: Mobilizes 4 limbs. Skin is dry and warm Neurological: No motor, no sensitive deficits, normal speech. Pupils are isocoric and reactive. Psych/Mental Status: A/Ox3 laboratory and microbiology Laboratory Tests 04/18/25 15:41 Test 04/18/25 15:41 Range/Units Serum Glucose 116 H 74-106 mg/dL Labs and/or images reviewed: Labs reviewed by me, Image(s) reviewed by me Problem List/Assessment/Plan Problem List/Assessment/Plan Intractable left flank pain Unable to tolerate diet 2 mm Left distal ureter obstructing calculus Sroq-gc-ocftqtxk left hydronephrosis and hydroureter Microscopic hematuria secondary to above History of nephrolithiasis CT abd w/o contrast - Clli-ea-bembudrx left hydronephrosis and hydroureter with an obstructing calculus in the distal left ureter measuring up to 2 mm. Urology evaluation is recommended. Urology consulted-If stone does not pass and pain is uncontrollable, we will proceed with ureteroscopy and laser lithotripsy on Monday04/22/2025 Patient requiring IV morphine, IV Toradol NS 125 cc/hour Tamsulosin 0.4 mg daily Mannitol administered Hypodensities in the spleen Outpatient workup advised CT abdomen shows Few subcentimeter hypodensities in the spleen similar to prior are nonspecific. This can be further evaluated with MRI of the abdomen with contrast. Sigmoid diverticulosis. Sigmoid diverticulosis Monitor DVT prophylaxis: SCDs Pantoprazole 40 mg daily Full liquid diet Plan discussed with patient in which all questions have been answered Goals of care discussed for more than 20 minutes, full code status Case discussed with Dr. Estrada Plan discussed with: Patient Date of Service: Apr 19, 2025 Billing Provider: KARL SANTIAGO MD Common Visit Codes: [id number] INP/OBS CARE(HIGH) MARIANNE TOBIN Apr 19, 2025 06:55 KARL SANTIAGO MD Apr 21, 2025 00:24
[2025-04-19] MEDS: cefTRIAXone 1GM/50ML D5W 50 ML IV SCH (08:29)
--- NOTE | 2025-04-19 08:47 | DVHINCON2 ---
Date of service: Apr 19, 2025 Referring Physician Hospitalist Reason for Consultation Intractable left flank pain History of Present Illness Patient is admitted for left-sided flank pain. He has history of kidney stones status post spontaneous passage 13 years ago. His chemistry labs are within normal limits and has no white count. CT scan was reviewed by me with findings of very mild left hydronephrosis and a 2 mm distal UVJ calculus. This will likely pass spontaneously. However currently he rates his pain eight on a scale of 1-10 Primary Care Provider: GURJIT Reviewed notes: Nurses Notes, Medications, Allergies Allergies: Coded Allergies: NO KNOWN ALLERGIES (Unverified , 08/28/15) Home Meds No Active Prescriptions or Reported Meds Information Source: Patient Mode of Arrival: Ambulatory Severity: Moderate Inability to void: None Timing: Days Duration: Since onset, Days Prehospital treatment: None Onset: Spontaneous Symptoms: Frequency, Urgency, Other (LEFT FLANK PAIN) History of: Kidney stone Location: None Penile discharge: None Modifying factors: None associated signs and symptoms: Flank Pain, Urgency Past Medical History Kidney stones Past Surgical History Back surgeries x2 Family History: Diabetes mellitus G8 MOTHER Hypercholesterolemia G8 FATHER Hypertension G8 FATHER Allergies: Coded Allergies: NO KNOWN ALLERGIES (Unverified , 08/28/15) Home Meds No Active Prescriptions or Reported Meds Current Medications Current Medications Medications (Trade) Dose Ordered Sig/Refugio Route PRN Reason Start Time Stop Time Status Last Admin Sodium Chloride 1,000 ml @ 125 mls/hr Q8H IV 04/18/25 22:00 04/19/25 00:09 Ceftriaxone Sodium 50 ml @ 100 mls/hr DAILY@09 IV 04/19/25 09:00 04/19/25 08:29 Nitroglycerin (Ntrostat Sublingual) 0.4 mg Q5MINP PRN SL FOR CHEST PAIN 04/18/25 22:30 Morphine Sulfate 2 mg Q6HPRN PRN IV MODERATE PAIN (4-6 PAIN SCALE) 04/18/25 22:30 04/18/25 23:01 Pantoprazole Sodium (Protonix Tablet) 40 mg DAILY@0600 PO 04/19/25 06:00 04/19/25 05:27 Review of Systems Constitutional: denies: chills, diaphoresis, fatigue, fever, malaise, sweats, weakness, others EENTM: denies: blurred vision, double vision, ear bleeding, ear discharge, ear drainage, ear pain, ear ringing, eye pain, eye redness, hearing loss, mouth pain, mouth swelling, nasal discharge, nose bleeding, nose congestion, nose pain, photophobia, tearing, throat pain, throat swelling, voice changes, others Respiratory: denies: cough, hemoptysis, orthopnea, SOB at rest, shortness of breath, SOB with excertion, stridor, wheezing, others Cardiovascular: denies: chest pain, dizzy spells, diaphoresis, Dyspnea on exertion, edema, irregular heart beat, left arm pain, lightheadedness, palpitations, PND, syncope, others Gastrointestinal: reports: abdominal pain (LLQ ABDOMINAL PAIN); denies: abdomen distended, blood streaked bowels, constipated, diarrhea, dysphagia, difficulty swallowing, hematemesis, melena, nausea, poor appetite, poor fluid intake, rectal bleeding, rectal pain, vomiting, others Genitourinary: reports: flank pain (LEFT FLANK PAIN), frequency, urgency; denies: burning, dysuria, hematuria, incontinence, penile discharge, penile sore, pain, testicle pain, testicle swelling, others Neurological: denies: dizziness, fainting, headache, left sided numbness, left sided weakness, numbness, paresthesia, pre-existing deficit, right sided numbness, right sided weakness, seizure, speech problems, tingling, tremors, weakness, others Musculoskeletal: denies: back pain, gout, joint pain, joint swelling, muscle pain, muscle stiffness, neck pain, others Integumetry: denies: bruises, change in color, change in hair/nails, dryness, laceration, lesions, lumps, rash, wounds, others Allergic/Immunocompromised: denies: Difficulty Healing, Frequent Infections, Hives, Itching, others Hematologic/Lymphatic: denies: anemia, blood clots, easy bleeding, easy bruis ing, swollen glands, others Endocrine: denies: excessive hunger, excessive sweating, excessive thirst, exc essive urination, flushing, intolerance to cold, intolerance to heat, unexplained weight gain, unexplained weight loss, others Psychiatric: denies: anxiety, bipolar disorder, depression, hopeless, panic disorder, schizophrenia, sleepless, suicidal, others All Other Systems: Reviewed and Negative Vital Signs Vital Signs Date Time Temp Pulse Resp B/P (MAP) Pulse Ox O2 Delivery O2 Flow Rate FiO2 04/19/25 08:17 99.2 68 16 120/86 (97) 96 99.2 04/18/25 23:54 Room Air* 0 21 Physical Exam General Appearance: No Apparent Distress, Normal HEENT: Normal ENT Inspection, PERRL/EOMI, Pharynx Normal, TMs Normal Neck: Full Range of Motion, Non-Tender, Normal, Normal Inspection Respiratory: Chest Non-Tender, Lungs Clear, No Accessory Muscle Use, No Respiratory Distress, Normal Breath Sounds Cardiovascular: No Edema, No JVD, No Murmur, No Gallop, Normal Peripheral Pulses, Regular Rate/Rhythm Breast Exam: Deferred Gastrointestinal: LLQ, No Organomegaly, No Pulsatile Mass, Normal Bowel Sounds, Soft, Tenderness (TENDERNESS WITH GUARDING ON LEFT LOWER ABD AND FLANK, NO REBOUND TENDERNESS, +CVA TENDERNESS. ) Genitalia: Deferred Pelvic: Normal External Exam Rectal: Deferred Extremities: No calf tenderness, Normal capillary refill, Normal inspection, Normal range of motion, Non-tender, No pedal edema Musculoskeletal : Apperance: Normal Neurologic: Alert, pocket stitcher II-XII nml as Tested, No Motor Deficits, Normal Affect, Normal Mood, No Sensory Deficits Cerebellar Function: Normal Reflexes: Normal Skin: Dry, Normal Color, Warm Peripheral Pulses: 2+ carotid (R), 2+ carotid (L) Lymphatic: No Adenopathy Labs/Diagnostic Data Labs Test 04/18/25 15:41 04/18/25 15:40 Range/Units White Blood Count 10.2 4.4-10.8 10^3/uL Red Blood Count 5.35 4.5-5.90 10^6/uL Hemoglobin 15.4 13.5-17.5 g/dL Hematocrit 46.5 41.0-53.0 % Mean Corpuscular Volume 87.1 80.0-100.0 fL Mean Corpuscular Hemoglobin 28.8 28.0-32.0 pg Mean Corpuscular Hemoglobin Concent 33.1 32.0-36.0 g/dL Red Cell Distribution Width 13.5 11.8-14.3 % Platelet Count 243 140-450 10^3/uL Mean Platelet Volume 8.9 6.9-10.8 fL Neutrophils (%) (Auto) 71.3 37.0-80.0 % Lymphocytes (%) (Auto) 21.9 10.0-50.0 % Monocytes (%) (Auto) 5.0 0.0-12.0 % Eosinophils (%) (Auto) 1.1 0.0-7.0 % Basophils (%) (Auto) 0.7 0.0-2.0 % Neutrophils # (Auto) 7.3 1.6-8.6 10 ^3/uL Lymphocytes # (Auto) 2.2 0.4-5.4 10 ^3/uL Monocytes # (Auto) 0.5 0-1.3 10 ^3/uL Eosinophils # (Auto) 0.1 0-0.8 10 ^3/uL Basophils # (Auto) 0.1 0-0.2 10 ^3/uL Nucleated Red Blood Cells 0.0 % Sodium Level 142 136-145 mmol/L Potassium Level 4.4 3.5-5.1 mmol/L Chloride Level 108 H 98-107 mmol/L Carbon Dioxide Level 29 20-31 mmol/L Anion Gap 5 5-15 Blood Urea Nitrogen 13 9-23 mg/dL Creatinine 1.03 0.700-1.30 mg/dL Glomerular Filtration Rate Calc 88 >90 mL/min BUN/Creatinine Ratio 12.6 10.0-20.0 Serum Glucose 116 H 74-106 mg/dL Calcium Level 10.0 8.7-10.4 mg/dL Total Bilirubin 0.8 0.2-1.0 mg/dL Aspartate Amino Transferase (AST) 14 13-40 U/L Alanine Aminotransferase (ALT) 15 7-40 U/L Alkaline Phosphatase 72 46-116 U/L Total Protein 6.8 5.7-8.2 g/dL Albumin 4.3 3.2-4.8 g/dL Urine Color Yellow Yellow Urine Clarity Clear Clear Urine pH 6.5 5.0-9.0 Urine Specific [place] 1.021 1.001-1.035 Urine Protein Trace H Negative Urine Ketones Negative Negative Urine Blood 3+ H Negative /uL Urine Nitrite Negative Negative Urine Bilirubin Negative Negative Urine Urobilinogen Normal Negative mg/dL Urine Leukocyte Esterase Trace Negative /uL Urine RBC 329 0 - 3 /hpf Urine Microscopic WBC 2 0-3 /HPF Urine Squamous Epithelial Cells Few <5 /hpf Urine Bacteria None seen None Seen /hpf Urine Mucus Few None Seen Urine Glucose Normal Normal mg/dL PATIENT: PAT TONY ACCT: [id number] UNIT: [id number] : 1975 LOC: ER ROOM / BED: / AGE / SEX: 49 / M ADM STATUS: REG ER SERVICE [id number] ORDERING PHYSICIAN: AILYN CONLEY PROCEDURE(s): ABPL - CT AB PEL WO CON-NO ORAL OR IV REASON: LEFT FLANK PAIN, HX OF KIDNEY STONES ORDER NUMBER(s): [id number], ACCESSION NUMBER(s): [id number] Exam: CT CT AB PEL WO CON-NO ORAL OR IV History: LEFT FLANK PAIN, HX OF KIDNEY STONES Comparison Study: CT ABD PELVIS WO CONTRAST on DOS: 03/14/13 Technique: Multidetector spiral CT of the abdomen and pelvis was performed from lung bases to pubic symphysis. Imaging was performed without IV contrast. Axial, coronal and sagittal multiplanar reformats were obtained from the axial data set by the technologist. Radiation dose : Abdomen/Pelvis: CTDIvol 10 mGy, DLP 627 mGy*cm. Findings: Evaluation of solid organs is limited due to lack of intravenous contrast use. Lung Bases: No acute or significant lung base finding. Normal heart size. No pleural or pericardial effusion. Liver: The liver is normal in size. No focal lesions. Gallbladder and biliary Tree: Unremarkable Spleen: Few subcentimeter hypodensities in the spleen. Pancreas: The pancreas is grossly normal in appearance. Adrenal Glands: Unremarkable Kidneys: Dpec-jy-zctqotfx left hydronephrosis and hydroureter with an obstructing calculus in the distal left ureter measuring up to 2 mm. No right hydronephrosis. Bladder: Grossly unremarkable for degree of distention. Bowel: The stomach is grossly normal in appearance. Small bowel and colon are normal in caliber and distribution. Normal appendix is visualized in the right lower quadrant without findings of appendicitis. Sigmoid diverticulosis. Ascites: Absent Lymphadenopathy: No mesenteric, retroperitoneal or periportal lymphadenopathy. Abdominal wall and Mesentery: Unremarkable. Vasculature: The visualized abdominal aorta is normal in size and caliber. Evaluation of abdominal and pelvic vessels is limited due to lack of intravenous contrast. Pelvic Organs: Unremarkable Musculoskeletal: No aggressive focal bony lesions, acute fractures or dislocation. IMPRESSION: 1. Swaw-iz-vybjmfzc left hydronephrosis and hydroureter with an obstructing calculus in the distal left ureter measuring up to 2 mm. Urology evaluation is recommended. 2. Few subcentimeter hypodensities in the spleen similar to prior are nonspecific. This can be further evaluated with MRI of the abdomen with contrast. Sigmoid diverticulosis. Radiation optimization: All CT scans at this facility use at least one of these dose optimization techniques: Automated exposure control mA and/or kV adjustment per patient size (includes targeted exams where dose is matched to clinical indication) or iterative reconstruction. HS:Y ATED BY: ALVERTO PIRES MD DICTATED DATE/TIME: 04/18/251639 SIGNED BY: ALVERTO PIRES MD SIGNED DATE/TIME: 04/18/251639 CC: Assessment Left flank pain 2 mm left distal ureteral calculus with minimal hydronephrosis Microscopic hematuria secondary to urolithiasis Plan/Recommendation Expulsive measures and pain management Conservative management with pain control Outpatient follow up suggested If stone does not pass and pain is uncontrollable, we will proceed with ureteroscopy and laser lithotripsy on Monday04/22/2025 Plan discussed with: Patient, Other BESS TREVIZO MD Apr 19, 2025 08:47
[2025-04-19 10:16] LABS: Uric Acid 5.1 mg/dL (3.7-9.2)
[2025-04-19] MEDS: ACETAMINOPHEN 325 MG TAB PO ONE (12:15)
[2025-04-19] MEDS: KETOROLAC TROMETH 30 MG/ML 1ML VIAL IV ONE (12:16)
--- NOTE | 2025-04-19 16:22 | DVH ---
INDICATION: hydronephrosis left ureter stones TECHNIQUE: Multiple real-time sonographic images of the kidneys and bladder were obtained. COMPARISON: None FINDINGS: RIGHT kidney measures 10.27 cm in length. No hydronephrosis. LEFT kidney measures 10.61 cm in length. No hydronephrosis. No large intraluminal masses are seen in the bladder. Prostate measures 3.45 by 3 x 3 cm Bladder volume prevoid 129 0.09 ML. Bladder wall 1.2 mm IMPRESSION: 1. Right kidney measures 10.3 cm. 2. Left kidney measures 10.6 cm. 3. Prostate measures 3.5 x 3 x 3 cm
[2025-04-19] MEDS: TAMSULOSIN HYDROCHLORIDE 0.4 MG CAP PO ONE (21:03)
[2025-04-19] MEDS: HYDROcodone-ACET 5/325MG TAB PO PRN (21:45)
[2025-04-20 01:00] VITALS: BP 127/81; PULSE 68; RESP 18; TEMP 98.8; O2SAT 97
[2025-04-20 05:00] VITALS: BP 132/89; PULSE 65; RESP 17; TEMP 98.8; O2SAT 97
[2025-04-20 08:49] LABS: Hematocrit 42.0 % (41.0-53.0); Hemoglobin 14.3 g/dL (13.5-17.5); Mean Corpuscular Hemoglobin 29.5 pg (28.0-32.0); Mean Corpuscular Volume 86.4 fL (80.0-100.0); Nucleated Red Blood Cells % 0.0 %
[2025-04-20 09:00] VITALS: BP 128/78; PULSE 68; RESP 16; TEMP 99.5; O2SAT 94
[2025-04-20 09:02] LABS: Anion Gap 8 (5-15); Calcium 9.3 mg/dL (8.7-10.4); Carbon Dioxide 23 mmol/L (20-31); Potassium 3.8 mmol/L (3.5-5.1); Sodium 142 mmol/L (136-145)
[2025-04-20 09:03] LABS: Chloride 111 mmol/L (98-107)
[2025-04-20 09:08] LABS: BUN/Creatinine Ratio 7.5 (10.0-20.0)
[2025-04-20 09:13] LABS: Blood Urea Nitrogen 8 mg/dL (9-23); Glucose 130 mg/dL (74-106)
[2025-04-20 13:00] VITALS: BP 128/86; PULSE 64; RESP 16; TEMP 98.5; O2SAT 96
[2025-04-20] MEDS ORDERED: TAMS0.4C39 PO (14:04)
[2025-04-20] MEDS ORDERED: ONDA-155 PO (14:04)
[2025-04-20] MEDS ORDERED: NAP500T PO (14:04)
[2025-04-20] MEDS ORDERED: LACT10PA2 PO (15:30)
--- NOTE | 2025-04-20 15:32 | DVHPN2 ---
Progress Note - Dictate Date Seen: Apr 20, 2025 Has the PT tested + for MRSA If YES, has PT been informed?: No Medical Necessity Reason Pt with a Central, PICC or Fol: No Medical Necessity Reason Left distal ureteral calculus, 2 mm Subjective Patient has not not had any pain reported since yesterday when he saw me. vital signs Vital Sign Date Time Temp Pulse Resp B/P (MAP) Pulse Ox O2 Delivery O2 Flow Rate FiO2 04/20/25 13:00 98.5 64 16 128/86 (100) 96 98.5 04/20/25 08:05 Room Air* 0 21 Total Intake and Output 04/19/25 04/19/25 04/20/25 15:00 23:00 07:00 Intake Total 2100 ml 1700 ml 1750 ml Output Total 600 ml 3820 ml Balance 2100 ml 1100 ml -2070 ml medications Current Medications Medications Dose Ordered Sig/Refugio Route Start Time Stop Time Status Last Admin Dose Admin Sodium Chloride 1,000 ml @ 125 mls/hr Q8H IV 04/18/25 22:00 04/20/25 13:16 125 MLS/HR Ceftriaxone Sodium 50 ml @ 100 mls/hr DAILY@09 IV 04/19/25 09:00 04/20/25 09:23 100 MLS/HR Nitroglycerin 0.4 mg Q5MINP PRN SL 04/18/25 22:30 Morphine Sulfate 2 mg Q6HPRN PRN IV 04/18/25 22:30 04/20/25 01:19 2 MG Pantoprazole Sodium 40 mg DAILY@0600 PO 04/19/25 06:00 04/20/25 05:01 40 MG Acetaminophen/ Hydrocodone Bitart 1 tab Q6HPRN PRN PO 04/19/25 21:45 04/19/25 21:45 1 TAB objective No apparent distress laboratory and microbiology Laboratory Tests 04/20/25 08:23 Test 04/20/25 08:23 Range/Units Serum Glucose 130 H 74-106 mg/dL Problem List Left distal ureteral calculus 2 mm, likely passed Assessment/Plan Left flank pain resolved 2 mm left distal ureteral calculus with minimal hydronephrosis Microscopic hematuria secondary to urolithiasis Patient is stable for discharge from urological standpoint. I recommend follow up in Urology Clinic as outpatient in 1-2 weeks Plan discussed with: Patient BESS TREVIZO MD 13, 2025 15:32
--- NOTE | 2025-04-20 15:39 | DVHDSRES ---
Discharge Summary Date of Admission Resident Creating Document: MOUSTAPHA WILKINS RESIDENT Apr 18, 2025 at 22:16 Date of Discharge: Apr 20, 2025 Admitting Diagnosis Acute left flank pain likely due to nephrolithiasis Wounds: No wounds present at this time. Labs/Diagnostic Data: Laboratory Results Test 04/20/25 08:23 04/19/25 08:46 04/18/25 15:41 04/18/25 15:40 White Blood Count 9.5 10^3/uL (4.4-10.8) Red Blood Count 4.86 10^6/uL (4.5-5.90) Hemoglobin 14.3 g/dL (13.5-17.5) Hematocrit 42.0 % (41.0-53.0) Mean Corpuscular Volume 86.4 fL (80.0-100.0) Mean Corpuscular Hemoglobin 29.5 pg (28.0-32.0) Mean Corpuscular Hemoglobin Concent 34.2 g/dL (32.0-36.0) Red Cell Distribution Width 13.9 % (11.8-14.3) Platelet Count 203 10^3/uL (140-450) Mean Platelet Volume 8.5 fL (6.9-10.8) Neutrophils (%) (Auto) 71.6 % (37.0-80.0) Lymphocytes (%) (Auto) 20.8 % (10.0-50.0) Monocytes (%) (Auto) 5.7 % (0.0-12.0) Eosinophils (%) (Auto) 1.3 % (0.0-7.0) Basophils (%) (Auto) 0.6 % (0.0-2.0) Neutrophils # (Auto) 6.8 10 ^3/uL (1.6-8.6) Lymphocytes # (Auto) 2.0 10 ^3/uL (0.4-5.4) Monocytes # (Auto) 0.5 10 ^3/uL (0-1.3) Eosinophils # (Auto) 0.1 10 ^3/uL (0-0.8) Basophils # (Auto) 0.1 10 ^3/uL (0-0.2) Nucleated Red Blood Cells 0.0 % Sodium Level 142 mmol/L (136-145) Potassium Level 3.8 mmol/L (3.5-5.1) Chloride Level 111 mmol/L (98-107) Carbon Dioxide Level 23 mmol/L (20-31) Anion Gap 8 (5-15) Blood Urea Nitrogen 8 mg/dL (9-23) Creatinine 1.07 mg/dL (0.700-1.30) Glomerular Filtration Rate Calc 84 mL/min (>90) BUN/Creatinine Ratio 7.5 (10.0-20.0) Serum Glucose 130 mg/dL (74-106) Calcium Level 9.3 mg/dL (8.7-10.4) Uric Acid 5.1 mg/dL (3.7-9.2) Phosphorus Level 3.3 mg/dL (2.4-5.1) Thyroid Stimulating Hormone (TSH) 0.56 uIU/mL (0.55-4.78) Total Bilirubin 0.8 mg/dL (0.2-1.0) Aspartate Amino Transferase (AST) 14 U/L (13-40) Alanine Aminotransferase (ALT) 15 U/L (7-40) Alkaline Phosphatase 72 U/L (46-116) Total Protein 6.8 g/dL (5.7-8.2) Albumin 4.3 g/dL (3.2-4.8) Urine Color Yellow (Yellow) Urine Clarity Clear (Clear) Urine pH 6.5 (5.0-9.0) Urine Specific [place] 1.021 (1.001-1.035) Urine Protein Trace (Negative) Urine Ketones Negative (Negative) Urine Blood 3+ /uL (Negative) Urine Nitrite Negative (Negative) Urine Bilirubin Negative (Negative) Urine Urobilinogen Normal mg/dL (Negative) Urine Leukocyte Esterase Trace /uL (Negative) Urine RBC 329 /hpf (0 - 3) Urine Microscopic WBC 2 /HPF (0-3) Urine Squamous Epithelial Cells Few /hpf (<5) Urine Bacteria None seen /hpf (None Seen) Urine Mucus Few (None Seen) Urine Glucose Normal mg/dL (Normal) Other Laboratory Tests 04/20/25 08:23 Brief Hx & Hospital Course: This is a 49-year-old male with PMHx nephrolithiasis few years back, who presented to the ER with a chief complaint of left flank pain for 1 day before coming to the ED. Patient reports sudden onset, left flank pain, nonradiating, localized, severe in intensity starting yesterday in afternoon. Denies any dysuria or hematuria. Upon admission, the patient denied fever/chills/nausea/vomiting. Initial labs CBC was showing slightly leukocytosis 10.2 but otherwise CMP was grossly unremarkable. CT of the abdomen showed mild to moderate left-sided hydronephrosis and hydroureter with an obstructing calculus in the distal left ureter measuring 2 mm. There was also few subcentimeter hypodensities in the spleen similar to prior study. Patient was started on IV fluids, started tamsulosin 0.4 mg daily. The patient was also placed on ondansetron p.r.n. for nausea/vomiting. Strain urine was ordered to see if patient was able to pass any stone. Urology was consulted which recommended conservative measures initially and if patient did not improve then it will be scheduled for extracorporeal shock wave lithotripsy. Today, patient was seen and examined at bedside. The patient reports very minimal abdominal tenderness and does not require any pain medication in the last 12 hours. Patient states that thinks he passed the stone. Patient has no acute complaints at this time. Denies fever/chills, abdominal pain, shortness of breath, chest pain or any other symptoms. We will discharge the patient home on tamsulosin 0.4 mg daily for 15 days, naproxen PRN for seven days, well oral hydration and lactulose 10 g daily for seven days due to mentioning some constipation. We explained the importance of following up in one week with his PCP as an outpatient and if pain returns follow-up with Urology as an outpatient as well. Patient agrees and understands the plan. Discharge plan -keep well oral hydration -continue tamsulosin 0.4 mg daily for 15 days -ondansetron 4 mg daily for seven days PRN only in case of nausea/vomiting -naproxen 500 mg b.i.d. for seven days in case of abdominal pain -follow-up with his PCP in one week -follow-up with Urology as an outpatient in two weeks if pain persist. Consults/Reason for consult Consulted Urology for left-sided nephrolithiasis Operations or Procedures Exam: CT CT AB PEL WO CON-NO ORAL OR IV History: LEFT FLANK PAIN, HX OF KIDNEY STONES Comparison Study: CT ABD PELVIS WO CONTRAST on DOS: 03/14/13 Technique: Multidetector spiral CT of the abdomen and pelvis was performed from lung bases to pubic symphysis. Imaging was performed without IV contrast. Axial, coronal and sagittal multiplanar reformats were obtained from the axial data set by the technologist. Radiation dose : Abdomen/Pelvis: CTDIvol 10 mGy, DLP 627 mGy*cm. Findings: Evaluation of solid organs is limited due to lack of intravenous contrast use. Lung Bases: No acute or significant lung base finding. Normal heart size. No pleural or pericardial effusion. Liver: The liver is normal in size. No focal lesions. Gallbladder and biliary Tree: Unremarkable Spleen: Few subcentimeter hypodensities in the spleen. Pancreas: The pancreas is grossly normal in appearance. Adrenal Glands: Unremarkable Kidneys: Zivh-hq-iyastwzq left hydronephrosis and hydroureter with an obstructing calculus in the distal left ureter measuring up to 2 mm. No right hydronephrosis. Bladder: Grossly unremarkable for degree of distention. Bowel: The stomach is grossly normal in appearance. Small bowel and colon are normal in caliber and distribution. Normal appendix is visualized in the right lower quadrant without findings of appendicitis. Sigmoid diverticulosis. Ascites: Absent Lymphadenopathy: No mesenteric, retroperitoneal or periportal lymphadenopathy. Abdominal wall and Mesentery: Unremarkable. Vasculature: The visualized abdominal aorta is normal in size and caliber. Evaluation of abdominal and pelvic vessels is limited due to lack of intravenous contrast. Pelvic Organs: Unremarkable Musculoskeletal: No aggressive focal bony lesions, acute fractures or dislocation. IMPRESSION: 1. Cgzc-mo-xumzqwqt left hydronephrosis and hydroureter with an obstructing calculus in the distal left ureter measuring up to 2 mm. Urology evaluation is recommended. 2. Few subcentimeter hypodensities in the spleen similar to prior are nonspecific. This can be further evaluated with MRI of the abdomen with contrast. Sigmoid diverticulosis. INDICATION: hydronephrosis left ureter stones TECHNIQUE: Multiple real-time sonographic images of the kidneys and bladder were obtained. COMPARISON: None FINDINGS: RIGHT kidney measures 10.27 cm in length. No hydronephrosis. LEFT kidney measures 10.61 cm in length. No hydronephrosis. No large intraluminal masses are seen in the bladder. Prostate measures 3.45 by 3 x 3 cm Bladder volume prevoid 129 0.09 ML. Bladder wall 1.2 mm IMPRESSION: 1. Right kidney measures 10.3 cm. 2. Left kidney measures 10.6 cm. 3. Prostate measures 3.5 x 3 x 3 cm Condition at Discharge: Stable Final Diagnosis/Problems List Acute Intractable left flank pain likely due to left nephrolithiasis Vmxq-ps-zkovddgq left hydronephrosis and hydroureter History of nephrolithiasis Hypodensities in the spleen Sigmoid diverticulosis Discharge Disposition: Home Discharge Instruct/Medications Diet: Regular Activity: No Restrictions, As Tolerated Follow Up/Referral: F/U with his PCP in 1 week F/U with urology as outpatient if pain persist in 2 weeks Medications: Tamsulosin 0.4 mg daily for 15 days Ondansetron 4 mg daily for seven days Naproxen 500 mg b.i.d. for seven days Lactulose 10 g daily for seven days p.o.. Scheduled Lactulose (Lactulose), 10 GM PO DAILY Naproxen (Naprosyn Tablet), 1 TAB PO BID Tamsulosin Hcl (Tamsulosin Hcl), 1 CAP PO DAILY Scheduled PRN Ondansetron HCl (Ondansetron), 4 MG PO DAILY PRN Discharge Statement: "Patient was advised to return to the ER or call 911 if any headaches, dizziness, shortness of breath, chest pain, abdominal pain, bleeding, fevers, or worsening of medical condition. Patient was counseled about treatment plan, medications, possible side effects, patientverbalized understanding. All questions were answered to the best of my ability. This discharge took greater then 30 minutes in planning, reviewing documentation, counseling the patient, and discussing with other team members." ASSESSMENT ASSESSMENT Assessment Acute Intractable left flank pain likely due to left nephrolithiasis Cziz-ex-vpzmhtjw left hydronephrosis and hydroureter History of nephrolithiasis Hypodensities in the spleen Sigmoid diverticulosis Date of Service: Apr 20, 2025 Billing Provider: KARL SANTIAGO MD Common Visit Codes: 01969-LIW/OBS DISCH DAY >30min MOUSTAPHA WILKINS RESIDENT Apr 20, 2025 15:39 KARL SANTIAGO MD Apr 21, 2025 21:45
[2025-04-20 16:44] VITALS: BP 134/81; PULSE 65; RESP 16; TEMP 98.4; O2SAT 96
== END 2025-04-20 16:22 | disposition home or self-care (01) | DRG 694 ==
LOC: ER 15:22 → EEVIPCON 15:22 → OVERFLOW 22:16 → CENTRAL 22:18
PROVIDERS: ATTEND Internal Medicine
DX: N13.2 Hydronephrosis with renal and ureteral calculous obstruction (principal); E66.9 Obesity, unspecified; R31.29 Other microscopic hematuria; Z68.29 Body mass index [BMI] 29.0-29.9, adult; K57.30 Diverticulosis of large intestine without perforation or abscess without bleeding; Z82.49 Family history of ischemic heart disease and other diseases of the circulatory system; Z83.3 Family history of diabetes mellitus
CPT/HCPCS: 36415; 74176; 76775; 80048; 80053; 81001; 82306; 82607; 84100; 84443; 84550; 85025; 96361; 96374; 96375; G0378; J1885; J2405

== ENCOUNTER 2025-09-01 06:43 | Outpatient (CLI) | payer BC ==
[~2025-09-01 06:43] MED LIST: LACT10PA2 PO; NAP500T PO; ONDA-155 PO; TAMS0.4C39 PO
== END 2025-09-01 17:00 | disposition home or self-care (01) ==
LOC: LAB 06:43
PROVIDERS: ATTEND Internal Medicine
DX: N20.0 Calculus of kidney (principal)
CPT/HCPCS: 36415; 83970; 84550

== ENCOUNTER → 2025-09-20 | Day surgery (SDC) | payer BC ==
[2025-09-19 06:35] LABS: Hematocrit 47.7 % (41.0-53.0); Hemoglobin 15.7 g/dL (13.5-17.5); Mean Corpuscular Hemoglobin 28.6 pg (28.0-32.0); Mean Corpuscular Volume 87.1 fL (80.0-100.0); Nucleated Red Blood Cells % 0.1 %
[2025-09-19 06:46] LABS: INR 0.96 (0.9-1.15); Partial Thromboplastin Time 27.2 SEC (24.5-34.5); Prothrombin Time 10.2 sec (9.3-11.8)
[2025-09-19 06:48] LABS: Alanine Aminotransferase 19 U/L (7-40); Albumin 4.1 g/dL (3.2-4.8); Alkaline Phosphatase 72 U/L (46-116); Anion Gap 8 (5-15); BUN/Creatinine Ratio 18.8 (10.0-20.0); Blood Urea Nitrogen 16 mg/dL (9-23); Calcium 9.3 mg/dL (8.7-10.4); Carbon Dioxide 26 mmol/L (20-31); Glucose 91 mg/dL (74-106); Potassium 4.4 mmol/L (3.5-5.1); Sodium 142 mmol/L (136-145); Total Protein 6.9 g/dL (5.7-8.2)
[2025-09-19 06:49] LABS: Bilirubin, Total 0.6 mg/dL (0.2-1.0)
[2025-09-19 06:54] LABS: Chloride 108 mmol/L (98-107)
[~2025-09-20] VITALS: Ht 182.9 cm; Wt 94.8 kg
[2025-09-20] MEDS: fentaNYL CITRATE 100 MCG/2 ML VL ONE (09:13)
[2025-09-20] MEDS: MIDAZOLAM HCL 2MG/2ML 2ml VIAL (1mg/ml) ONE (09:13)
[2025-09-20 09:30] VITALS: PULSE 57; RESP 15; TEMP 97.8; O2SAT 94
--- NOTE | 2025-09-20 09:30 | DVHNC2 ---
Procedure - DATE: SEPTEMBER 20, 2025 PROCEDURE PERFORMED BY: NUPUR OBRIEN MD REFERRING PROVIDER: REJI DAVALOS MD PROCEDURE PERFORMED: 1. COLONOSCOPY WITH MODERATE SEDATION PREPROCEDURE DIAGNOSIS: 1. COLON CANCER SCREENING POSTPROCEDURE DIAGNOSIS: 1. MODERATE LEFT-SIDED DIVERTICULOSIS 2. SMALL INTERNAL HEMORRHOIDS INDICATIONS FOR PROCEDURE: THE PATIENT IS A 50-YEAR-OLD MALE PRESENTS FOR OUTPATIENT COLONOSCOPY FOR SCREENING. HE IS AT AVERAGE RISK. MEDICATIONS USED: 6 MG OF VERSED IV AND 100 MCG OF FENTANYL IV DETAILS OF THE PROCEDURE: Informed consent was obtained after risks benefits and alternatives were discussed at length with the patient. The patient gave consent to the procedure as well as a medication used for sedation. He was placed in the left lateral decubitus position. Digital rectal exam showed internal hemorrhoids. An Olympus variable torsion pediatric colonoscope was inserted into the rectum and advanced to the cecum. The cecum was identified by the ileocecal valve and the appendiceal orifice. The scope was then withdrawn. The prep was good with only small amounts and stool. [place] bowel prep score of nine was noted. There were no large polyps, masses, strictures, or arteriovenous malformation seen. The patient had moderate left-sided diverticulosis. Retroflexion showed internal hemorrhoids. More than six months withdrawal time was noted. The patient tolerated the procedure well. COLONOSCOPY START TIME: 918 CECUM TIME: 921 COLONOSCOPY END TIME: 927 IMPRESSION: 1. SMALL INTERNAL HEMORRHOIDS 2. MODERATE LEFT-SIDED DIVERTICULOSIS RECOMMENDATIONS: 1. FOLLOW UP WITH PRIMARY CARE PHYSICIAN 2. HIGH-FIBER DIET 3. REPEAT COLONOSCOPY IN 10 YEARS UNLESS OTHERWISE INDICATED BY SYMPTOMS OR FAMILY HISTORY I WOULD LIKE TO THANK DR. DAVALOS FOR THIS REFERRAL NUPUR OBRIEN MD Sep 20, 2025 09:30
[2025-09-20 10:00] VITALS: BP 112/72; PULSE 16; RESP 16; O2SAT 95
== END | disposition home or self-care (01) ==
LOC: GI 08:09
PROVIDERS: ATTEND Specialist
DX: Z12.11 Encounter for screening for malignant neoplasm of colon (principal); K57.30 Diverticulosis of large intestine without perforation or abscess without bleeding; K64.8 Other hemorrhoids; Z82.49 Family history of ischemic heart disease and other diseases of the circulatory system; Z83.3 Family history of diabetes mellitus; Z98.890 Other specified postprocedural states
CPT/HCPCS: 36415; 45378; 80053; 85025; 85610; 85730; J2250; J3010; 99152